=== PATIENT | female | born 1950 | race Caucasian/White ===

== ENCOUNTER → 2024-01-28 | Outpatient (CLI) | payer OTHER ==
[~2024-01-28] MED LIST: AMLO5 PO; Adult Low Dose81 MG PO; CLOP75 PO; DOCU100 PO; EFFIENT10 MG PO; LIVALO2 MG PO; MAGOXI400 PO; METO25ER PO; NITR.4SL SL; RANO500T PO
== END | disposition home or self-care (01) ==
LOC: LAB 11:47 → LAB SHORT 11:47
DX: C44.41 Basal cell carcinoma of skin of scalp and neck (principal); C44.519 Basal cell carcinoma of skin of other part of trunk
CPT/HCPCS: 88305

== ENCOUNTER 2024-07-12 12:12 | Observation (INO) | payer OTHER ==
[~2024-07-12] VITALS: Ht 152.4 cm; Wt 59.3 kg
[2024-07-12 12:42] LABS: BASOPHILS ABSOLUTE AUTO 0.04 K/mm3 (0.00-0.23); BASOPHILS PERCENT AUTO 1 % (0-2); EOSINOPHILS PERCENT AUTO 2 % (0-6); Hematocrit 40.1 % (33.0-51.0); Hemoglobin 13.6 g/dL (11.5-16.0); IMMATURE GRAN ABSOLUTE AUTO 0.02 K/mm3 (0.00-0.10); IMMATURE GRAN PERCENT AUTO 0 % (0-1); LYMPHOCYTES ABSOLUTE AUTO 2.31 K/mm3 (0.84-5.20); LYMPHOCYTES PERCENT AUTO 34 % (21-46); MONOCYTES PERCENT AUTO 5 % (4-13); Mean Corpuscular HGB 30.2 pg (26.0-34.0); Mean Corpuscular HGB Conc 33.9 g/dL (31.5-36.5); Mean Corpuscular Volume 89 fL (80-100); Mean Platelet Volume 10.2 fL (9.1-12.4); NEUTROPHILS ABSOLUTE AUTO 3.95 K/mm3 (1.96-9.15); NEUTROPHILS PERCENT AUTO 59 % (41-73); Platelet Count 207 K/mm3 (150-400); RDW Coefficient Variation 12.3 % (11.7-14.2); RDW Standard Deviation 39.9 fL (35.1-46.3); Red Blood Cell Count 4.51 M/mm3 (3.80-5.20); White Blood Cell Count 6.72 K/mm3 (4.00-11.30)
[2024-07-12 13:08] LABS: Albumin/Globulin Ratio 1.2 (0.8-1.8); Bilirubin, Total 0.6 mg/dL (0.1-1.0); Bun/Creatinine Ratio 18.1 (12.0-20.0); Calcium, Blood 9.8 mg/dL (8.5-10.1); Creatinine, Blood 0.99 mg/dL (0.40-1.00); Globulin, Blood 3.2 g/dL (2.2-4.0); Potassium, Blood 4.3 mmol/L (3.5-5.5); Total Protein, Blood 7.2 g/dL (6.4-8.2)
[2024-07-12] MEDS ORDERED: EZET10 PO (14:25)
[2024-07-12 16:18] VITALS: BP 134/89
[2024-07-12] MEDS ORDERED: Magnesium Hydroxide Conc 10 ML UDC PO PRN (16:45)
[2024-07-12] MEDS ORDERED: Ondansetron HCl 2 MG / ML 2ML Vial IV PRN (16:45)
[2024-07-12] MEDS ORDERED: Bisacodyl 10 MG Supp PR PRN (16:50)
[2024-07-12] MEDS ORDERED: FLU VACC TS2024-25(6MOS UP)/PF 45 MCG/0.5 ML SYRINGE IM PRN (16:50)
[2024-07-12] MEDS ORDERED: Ondansetron 4 MG TAB PO PRN (16:50)
[2024-07-12] MEDS ORDERED: Heparin Sodium,Porcine 5,000 UNIT/0.5 ML SDV SC SCH (17:00)
--- NOTE | 2024-07-12 18:10 | NUR ---
ADMISSION NOTE PATIENT AMITTED TO ROOM 360 THIS EVENING FOR SUDDEN ONSET BACK AND RADIATING NECK PAIN, NEAR SYNCOPAL EPISODE, DIAPHARESES AND NAUSEA THAT OCCURED AT HOME. PATIENT STATES SHE HAS EXPERIENCED SIMILAR EPISODE IN THE PAST WHICH FOUND CARDIAC ISSUES LEADING TO STENT PLACEMENTS. PATIENT DENIES ANY PAIN UPON ADMISSION. A/OX4, INDEPENDENT WITH AMBULATION. TELEMETRY IN PLACE, NORMAL SINUS. SKIN INTACT. SISTER AND AT BEDSIDE. ADMISSION DOCUMENTATION COMPLETED. PLAN TO HAVE STRESS TEST TOMORROW, NPO AT MIDNIGHT TONIGHT. NO OTHER CONCERNS AT THIS TIME.
[2024-07-12 19:41] VITALS: BP 119/66
[2024-07-12] MEDS ORDERED: Zolpidem Tartrate 5 MG Tab PO PRN (21:00)
--- NOTE | 2024-07-13 01:05 | NUR ---
NPO SINCE MIDNIGHT FOR STRESS TEST IN THE AM. CALL LIGHT IN REACH. NO C/O VOICED, DENIED CHEST DISCOMFORT. WILL MONITOR. TELE SB IN THE 50'S.
--- NOTE | 2024-07-13 04:35 | NUR ---
LOOM OPERATOR SUMMARY VSS. ALERT AND ORIENTED. MED TELE SB IN THE 50'S. DENIED CHEST PAIN, VERTIGO AND STATED HAS BEEN DOING OK. WAS NPO AT MIDNIGHT FOR STRESS TEST SCHEDULED IN THE AM. HAS BEEN RESTING QUIETLY WITH FEW INTERRUPTIONS THIS SHIFT. UP AD BRIDGET. ABLE TO REPOSITION SELF IN BED WITHOUT ASSIST. CALL LIGHT IN REACH, RAILS UP X 2 AND BED IN LOW POSITION FOR SAFETY. WILL CONT TO MONITOR
[2024-07-13 05:15] VITALS: BP 118/67
[2024-07-13 06:25] LABS: BASOPHILS ABSOLUTE AUTO 0.03 K/mm3 (0.00-0.23); BASOPHILS PERCENT AUTO 1 % (0-2); EOSINOPHILS ABSOLUTE AUTO 0.12 K/mm3 (0.00-0.68); EOSINOPHILS PERCENT AUTO 3 % (0-6); Hematocrit 38.1 % (33.0-51.0); Hemoglobin 12.7 g/dL (11.5-16.0); IMMATURE GRAN ABSOLUTE AUTO 0.01 K/mm3 (0.00-0.10); IMMATURE GRAN PERCENT AUTO 0 % (0-1); LYMPHOCYTES ABSOLUTE AUTO 1.78 K/mm3 (0.84-5.20); LYMPHOCYTES PERCENT AUTO 40 % (21-46); MONOCYTES ABSOLUTE AUTO 0.37 K/mm3 (0.16-1.47); MONOCYTES PERCENT AUTO 8 % (4-13); Mean Corpuscular HGB Conc 33.3 g/dL (31.5-36.5); Mean Corpuscular Volume 90 fL (80-100); Mean Platelet Volume 10.3 fL (9.1-12.4); NEUTROPHILS ABSOLUTE AUTO 2.12 K/mm3 (1.96-9.15); NEUTROPHILS PERCENT AUTO 48 % (41-73); Platelet Count 183 K/mm3 (150-400); RDW Coefficient Variation 12.4 % (11.7-14.2); RDW Standard Deviation 40.7 fL (35.1-46.3); Red Blood Cell Count 4.23 M/mm3 (3.80-5.20); White Blood Cell Count 4.43 K/mm3 (4.00-11.30)
[2024-07-13 07:15] LABS: Alanine Aminotransfer (ALT/SGP 16 U/L (12-78); Albumin, Blood 3.7 g/dL (3.4-5.0); Albumin/Globulin Ratio 1.3 (0.8-1.8); Alk Phos 55 U/L (50-136); Anion Gap 8 mmol/L (3-11); Aspartate Aminotrans (AST/SGOT 22 U/L (12-37); Bilirubin, Total 0.6 mg/dL (0.1-1.0); Blood Urea Nitrogen 16 mg/dL (8-24); Bun/Creatinine Ratio 17.9 (12.0-20.0); CO2, Blood 25 mmol/L (21-32); Calcium, Blood 9.5 mg/dL (8.5-10.1); Chloride, Blood 113 mmol/L (98-108); Cholesterol 149 mg/dL (50-200); Creatinine, Blood 0.89 mg/dL (0.40-1.00); Globulin, Blood 2.9 g/dL (2.2-4.0); Glomerular Filtration Rate 68 (60-); Glucose, Blood 87 mg/dL (70-99); HDL Cholesterol 76 mg/dL (>39); LDL/HDL RATIO 0.8; Low Density Lipoprotein Chol 63 mg/dL (0-110); Sodium, Blood 142 mmol/L (136-145); Total Protein, Blood 6.6 g/dL (6.4-8.2); Triglycerides 48 mg/dL (30-160); Very Low Density Lipoprot Chol 9 mg/dL (6-32)
[2024-07-13] MEDS ORDERED: Famotidine 20 MG Tab PO SCH (07:30)
[2024-07-13 07:32] VITALS: BP 111/64
[2024-07-13] MEDS ORDERED: Metoprolol Succinate 25 MG TABCR PO SCH (09:00)
[2024-07-13] MEDS ORDERED: Aspirin 81 MG TabEC PO SCH (09:00)
[2024-07-13] MEDS ORDERED: Misc. Tablet PO SCH (09:00)
[2024-07-13] MEDS ORDERED: Ezetimibe 10 MG Tab PO SCH (09:00)
[2024-07-13] MEDS ORDERED: Aminophylline 250MG / 10ML 10 ML Vial ONE (09:52)
[2024-07-13] MEDS ORDERED: Regadenoson 0.4 MG/5 ML SYRINGE ONE (09:52)
--- NOTE | 2024-07-13 13:44 | NUR ---
DISCHARGE NOTE PATIENT A/OX4, ABLE TO MAKE NEEDS KNOWN. [facility] STAFF. , [place], AT BEDSIDE THIS MORNING. STRESS TEST COMPLETED AND RESULTS WNL. PATIENT WITH NO CARDIAC SYMPTOMS SINCE ADMISSION, DENIES PAIN, VITAL SIGNS WNL. PATIENT EDUCATED TO FOLLOW UP WITH PRIMARY CARE PROVIDER WITHIN 2 WEEKS AND TO CALL AND SCHEDULE APPOINTMENT. NO NEW MEDICATIONS ORDERED, PATIENT REFUSED MORNING MEDICATION SHE STATED SHE TAKES MOST OF HER MEDS AT NIGHT. ONLY TOOK A BABY ASPIRIN THIS AM. NO OTHER CONCERNS AT THIS TIME. PATIENT AND FAMILY WITH NO QUESTIONS AT TIME OF DISCHARGE, PATIENT REQUESTED TO WALK OUT OF [facility] WITH HER WITHOUT STAFF ASSISTANCE. PIV AND TELEMETRY REMOVED PRIOR TO EXIT.
[2024-07-13] MEDS ORDERED: Docusate Sodium 100 MG Cap PO SCH (21:00)
== END 2024-07-13 13:44 | disposition home or self-care (01) ==
LOC: ER 12:12 → ERHOLD 12:13 → MEDS 12:13
PROVIDERS: Physician Assistant; ADMIT Internal Medicine
DX: I25.118 Atherosclerotic heart disease of native coronary artery with other forms of angina pectoris (principal); I10 Essential (primary) hypertension; E78.5 Hyperlipidemia, unspecified; Z79.899 Other long term (current) drug therapy; Z88.8 Allergy status to other drugs, medicaments and biological substances
CPT/HCPCS: 36415; 71046; 78452; 80053; 80061; 84484; 85025; 93005; 93010; 93017; 99285-25; A9270; A9500; G0378; J0280; J2785